=== PATIENT | female | born 1955 | race Caucasian/White ===

== ENCOUNTER 2021-10-02 10:36 | Inpatient (IN) ==
[2021-10-02] MEDS ORDERED: SODIUM CHLORIDE 0.9% 1,000 ML IV STA ×2 (11:49→14:56)
[2021-10-02 12:23] LABS: Basophils # 0.1 10*3/uL (0.0-0.2); Basophils % 0.3 % (0.0-0.8); Eosinophils % 0.1 % (0.00-10.9); Hematocrit 40.9 VOL% (35.7-47.0); Immature Granulocytes % 0.8 %; Immature Granulocytes Absolute 0.16 #; Lymphocytes # 2.7 10*3/uL (1.4-4.0); Lymphocytes % 12.9 % (21.3-54.2); Mean Corpuscular HGB Conc 31.8 GM/DL (32-36); Mean Corpuscular Volume 79.4 FL (87-102); Mean Platelet Volume 9.4 FL (9.6-12.0); Monocytes # 2.4 10*3/uL (0.11-0.8); Monocytes % 11.3 % (1.7-12.7); Neutrophils % 74.6 % (38.7-73.9); Platelet Count 404 T/CUMM (130-400); Red Blood Count 5.15 MC/CUMM (3.8-5.5); Red Cell Distribution Width 15.7 % (9.3-17.3); White Blood Count 20.8 T/CUMM (4-12)
[2021-10-02 12:36] LABS: Hypochromia Slight; Lymphocytes 17 % (20-55); Microcytosis Slight; Platelet Estimate Adequate; Total Cells Counted 100
[2021-10-02 12:38] LABS: Albumin 2.6 G/DL (3.4-5.0); Bilirubin,Total 0.9 MG/DL (0.20-1.00); Calcium 9.4 MG/DL (8.5-10.1); Osmolality,Calculated 267.4 MOS/KG (273-304); Potassium 3.4 MMOL/L (3.5-5.1); Total Protein 7.2 G/DL (6.4-8.2)
[2021-10-02 14:22] LABS: Mucus,Urine Occasional /LPF (Occasional); RBC,Urine <1 /HPF (0-4); Squamous Epithelial Cell,Urine Occasional /HPF (0-10); Urine Appearance Clear (Clear); Urine Color Yellow (Yellow)
[2021-10-02 14:23] LABS: Bilirubin,Urine Negative (Negative); Blood, Urine Small mg/dL (Negative); Glucose,Urine (UA) Negative (Negative); Ketones,Urine Negative (Negative); Nitrite,Urine Negative (Negative); Protein,Urine Negative (Negative); Urine Urobilinogen 0.2 eU/dL (<2.0)
[2021-10-02] MEDS ORDERED: LEVOFLOXACIN INJ 500 MG/100 ML PREMIX IV ONE (17:30)
[2021-10-02] MEDS ORDERED: PROMETHAZINE 25 MG/1 ML VIAL IM PRN (17:32)
[2021-10-02] MEDS ORDERED: CETIRIZINE 10 MG TABLET PO PRN (17:32)
[2021-10-02] MEDS ORDERED: ONDANSETRON 4 MG/2 ML VIAL IV PRN (17:32)
[2021-10-02] MEDS ORDERED: GLUCAGON 1 MG VIAL IM PRN (17:32)
[2021-10-02] MEDS ORDERED: FLUTICASONE 50 MCG NASAL SPRAY 16 GM BOTTLE BOTH NARES PRN (17:32)
[2021-10-02] MEDS ORDERED: HYDROmorphone 1 MG/1 ML SYRINGE IV PRN (17:32)
[2021-10-02] MEDS ORDERED: DEXTROSE 10% 250 ML BAG IV PRN (17:37)
[2021-10-02] MEDS: INSULIN REGULAR 100 UNIT/ML SUBCUT SCH ×2 (18:24→21:31)
[2021-10-02] MEDS: LACTATED RINGERS 1,000 ML IV SCH (19:34)
[2021-10-02] MEDS: metroNIDAZOLE INJ 500 MG/100 ML PREMIX IV SCH (19:34)
[2021-10-02] MEDS: SOTALOL 80 MG TABLET PO SCH (21:38)
[2021-10-02] MEDS: MAGNESIUM OXIDE 400 MG TABLET PO SCH (21:38)
[2021-10-02] MEDS: TAMSULOSIN 0.4 MG CAPSULE PO SCH (21:38)
[2021-10-02] MEDS: ACETAMINOPHEN 325 MG TABLET PO PRN (21:38)
[2021-10-02] MEDS: ROSUVASTATIN 10 MG TABLET PO SCH (21:38)
[2021-10-02] MEDS: cefTRIAXone 1,000 MG in SODIUM CHLORIDE 0.9% 100 ML IV SCH (21:39)
[2021-10-03] MEDS: metroNIDAZOLE INJ 500 MG/100 ML PREMIX IV SCH ×3 (02:14→16:43)
[2021-10-03] MEDS: LACTATED RINGERS 1,000 ML IV SCH ×3 (05:43→19:00)
[2021-10-03] MEDS: PANTOPRAZOLE 40 MG TABLET PO SCH (05:44)
[2021-10-03 06:26] LABS: Basophils # 0.1 10*3/uL (0.0-0.2); Basophils % 0.3 % (0.0-0.8); Eosinophils # 0.1 10*3/uL (0.0-0.87); Eosinophils % 0.5 % (0.00-10.9); Hematocrit 39.2 VOL% (35.7-47.0); Hemoglobin 12.2 GM/DL (12.0-16.0); Immature Granulocytes % 0.5 %; Immature Granulocytes Absolute 0.09 #; Lymphocytes # 1.9 10*3/uL (1.4-4.0); Lymphocytes % 10.6 % (21.3-54.2); Mean Corpuscular HGB Conc 31.1 GM/DL (32-36); Mean Corpuscular Volume 80.8 FL (87-102); Mean Platelet Volume 10.1 FL (9.6-12.0); Monocytes # 2.1 10*3/uL (0.11-0.8); Monocytes % 11.9 % (1.7-12.7); Neutrophils % 76.2 % (38.7-73.9); Platelet Count 345 T/CUMM (130-400); Red Blood Count 4.85 MC/CUMM (3.8-5.5); Red Cell Distribution Width 15.8 % (9.3-17.3); White Blood Count 17.4 T/CUMM (4-12)
[2021-10-03 06:43] LABS: Calcium 9.2 MG/DL (8.5-10.1); Osmolality,Calculated 273.8 MOS/KG (273-304); Potassium 3.1 MMOL/L (3.5-5.1)
[2021-10-03] MEDS ORDERED: POTASSIUM CHLORIDE RIDER 10 MEQ/100 ML PREMIX IV PRN (07:26)
[2021-10-03] MEDS: INSULIN REGULAR 100 UNIT/ML SUBCUT SCH ×4 (07:53→21:00)
[2021-10-03] MEDS ORDERED: fentaNYL 100 MCG/2 ML VIAL ONE (08:05)
[2021-10-03] MEDS ORDERED: SEVOFLURANE 1 UNIT/15 MINUTE INH ONE (08:31)
[2021-10-03] MEDS ORDERED: LIDOCAINE 2% 5 ML VIAL ONE (08:31)
[2021-10-03] MEDS ORDERED: ONDANSETRON 4 MG/2 ML VIAL ONE (08:31)
[2021-10-03] MEDS ORDERED: propofoL 200 MG/20 ML VIAL IV ONE (08:31)
[2021-10-03] MEDS ORDERED: ASPIRIN EC 81 MG TABLET PO SCH (09:00)
[2021-10-03] MEDS: ESCITALOPRAM 10 MG TABLET PO SCH (11:47)
[2021-10-03] MEDS: MAGNESIUM OXIDE 400 MG TABLET PO SCH ×2 (11:47→21:00)
[2021-10-03] MEDS: CHOLECALCIFEROL 5,000 UNIT TABLET PO SCH (11:47)
[2021-10-03] MEDS: TAMSULOSIN 0.4 MG CAPSULE PO SCH ×2 (11:47→21:00)
[2021-10-03] MEDS: SOTALOL 80 MG TABLET PO SCH ×2 (11:47→20:59)
[2021-10-03] MEDS: ENOXAPARIN 40 MG/0.4 ML SYRINGE SUBCUT SCH (11:48)
[2021-10-03] MEDS: cefTRIAXone 1,000 MG in SODIUM CHLORIDE 0.9% 100 ML IV SCH (20:58)
[2021-10-03] MEDS: ROSUVASTATIN 10 MG TABLET PO SCH (21:00)
[2021-10-03] MEDS: ACETAMINOPHEN 325 MG TABLET PO PRN (21:00)
[2021-10-04] MEDS: metroNIDAZOLE INJ 500 MG/100 ML PREMIX IV SCH ×3 (01:17→17:46)
[2021-10-04] MEDS: PANTOPRAZOLE 40 MG TABLET PO SCH (06:03)
[2021-10-04] MEDS: LACTATED RINGERS 1,000 ML IV SCH ×3 (06:03→17:47)
[2021-10-04 07:50] LABS: Basophils % 0.2 % (0.0-0.8); Eosinophils # 0.1 10*3/uL (0.0-0.87); Eosinophils % 0.7 % (0.00-10.9); Hematocrit 36.1 VOL% (35.7-47.0); Immature Granulocytes % 0.7 %; Immature Granulocytes Absolute 0.12 #; Lymphocytes # 2.4 10*3/uL (1.4-4.0); Mean Corpuscular HGB Conc 30.5 GM/DL (32-36); Mean Corpuscular Volume 81.5 FL (87-102); Monocytes # 1.9 10*3/uL (0.11-0.8); Monocytes % 10.7 % (1.7-12.7); Neutrophils % 74.7 % (38.7-73.9); Platelet Count 329 T/CUMM (130-400); Red Blood Count 4.43 MC/CUMM (3.8-5.5); Red Cell Distribution Width 16.1 % (9.3-17.3); White Blood Count 18.1 T/CUMM (4-12)
[2021-10-04] MEDS: INSULIN REGULAR 100 UNIT/ML SUBCUT SCH ×4 (07:55→20:51)
[2021-10-04 08:07] LABS: Calcium 8.8 MG/DL (8.5-10.1); Osmolality,Calculated 275.5 MOS/KG (273-304); Potassium 3.1 MMOL/L (3.5-5.1)
[2021-10-04] MEDS: ENOXAPARIN 40 MG/0.4 ML SYRINGE SUBCUT SCH (09:19)
[2021-10-04 10:11] LABS: INR 1.1; PT Patient Result 12.4 SECS (10.5-12.0)
[2021-10-04] MEDS ORDERED: DIAZEPAM 5 MG TABLET PO ONE (10:31)
[2021-10-04] MEDS ORDERED: fentaNYL 100 MCG/2 ML VIAL IV ONE (10:31)
[2021-10-04] MEDS ORDERED: MIDAZOLAM 2 MG/2 ML VIAL IV ONE (10:31)
[2021-10-04] MEDS: SOTALOL 80 MG TABLET PO SCH ×2 (16:00→20:49)
[2021-10-04] MEDS: ESCITALOPRAM 10 MG TABLET PO SCH (16:00)
[2021-10-04] MEDS: CHOLECALCIFEROL 5,000 UNIT TABLET PO SCH (16:00)
[2021-10-04] MEDS: MAGNESIUM OXIDE 400 MG TABLET PO SCH ×2 (16:00→20:49)
[2021-10-04] MEDS: TAMSULOSIN 0.4 MG CAPSULE PO SCH ×2 (16:00→20:49)
[2021-10-04] MEDS: ROSUVASTATIN 10 MG TABLET PO SCH (20:49)
[2021-10-04] MEDS: cefTRIAXone 1,000 MG in SODIUM CHLORIDE 0.9% 100 ML IV SCH (20:50)
[2021-10-04] MEDS: ACETAMINOPHEN 325 MG TABLET PO PRN (20:57)
[2021-10-05] MEDS: LACTATED RINGERS 1,000 ML IV SCH ×3 (01:30→18:01)
[2021-10-05] MEDS: metroNIDAZOLE INJ 500 MG/100 ML PREMIX IV SCH ×3 (01:30→18:00)
[2021-10-05 05:26] LABS: Basophils # 0.1 10*3/uL (0.0-0.2); Basophils % 0.3 % (0.0-0.8); Eosinophils # 0.3 10*3/uL (0.0-0.87); Eosinophils % 1.8 % (0.00-10.9); Hematocrit 35.9 VOL% (35.7-47.0); Immature Granulocytes % 0.6 %; Lymphocytes # 3.1 10*3/uL (1.4-4.0); Lymphocytes % 18.2 % (21.3-54.2); Mean Corpuscular HGB Conc 30.6 GM/DL (32-36); Mean Corpuscular Volume 83.1 FL (87-102); Mean Platelet Volume 9.7 FL (9.6-12.0); Monocytes # 1.8 10*3/uL (0.11-0.8); Monocytes % 10.4 % (1.7-12.7); Neutrophils % 68.7 % (38.7-73.9); Platelet Count 337 T/CUMM (130-400); Red Blood Count 4.32 MC/CUMM (3.8-5.5); Red Cell Distribution Width 16.6 % (9.3-17.3); White Blood Count 16.9 T/CUMM (4-12)
[2021-10-05] MEDS: PANTOPRAZOLE 40 MG TABLET PO SCH (05:30)
[2021-10-05 05:40] LABS: Osmolality,Calculated 278.4 MOS/KG (273-304); Potassium 3.3 MMOL/L (3.5-5.1)
[2021-10-05] MEDS: SOTALOL 80 MG TABLET PO SCH ×2 (08:53→21:52)
[2021-10-05] MEDS: TAMSULOSIN 0.4 MG CAPSULE PO SCH ×2 (08:54→21:52)
[2021-10-05] MEDS: CHOLECALCIFEROL 5,000 UNIT TABLET PO SCH (08:54)
[2021-10-05] MEDS: MAGNESIUM OXIDE 400 MG TABLET PO SCH ×2 (08:54→21:52)
[2021-10-05] MEDS: ESCITALOPRAM 10 MG TABLET PO SCH (08:54)
[2021-10-05] MEDS: INSULIN REGULAR 100 UNIT/ML SUBCUT SCH ×4 (08:55→21:52)
[2021-10-05] MEDS: ROSUVASTATIN 10 MG TABLET PO SCH (21:52)
[2021-10-05] MEDS: cefTRIAXone 1,000 MG in SODIUM CHLORIDE 0.9% 100 ML IV SCH (21:53)
[2021-10-05] MEDS: ACETAMINOPHEN 325 MG TABLET PO PRN (21:55)
[2021-10-06] MEDS: metroNIDAZOLE INJ 500 MG/100 ML PREMIX IV SCH ×2 (01:48→08:43)
[2021-10-06] MEDS: LACTATED RINGERS 1,000 ML IV SCH ×3 (02:42→11:48)
[2021-10-06 05:06] LABS: Basophils # 0.1 10*3/uL (0.0-0.2); Basophils % 0.3 % (0.0-0.8); Eosinophils # 0.4 10*3/uL (0.0-0.87); Eosinophils % 2.6 % (0.00-10.9); Hematocrit 36.4 VOL% (35.7-47.0); Hemoglobin 11.2 GM/DL (12.0-16.0); Immature Granulocytes % 0.7 %; Immature Granulocytes Absolute 0.12 #; Lymphocytes # 2.6 10*3/uL (1.4-4.0); Lymphocytes % 16.1 % (21.3-54.2); Mean Corpuscular HGB Conc 30.8 GM/DL (32-36); Mean Corpuscular Volume 82.4 FL (87-102); Mean Platelet Volume 9.9 FL (9.6-12.0); Monocytes # 1.6 10*3/uL (0.11-0.8); Monocytes % 9.6 % (1.7-12.7); Neutrophils % 70.7 % (38.7-73.9); Platelet Count 361 T/CUMM (130-400); Red Blood Count 4.42 MC/CUMM (3.8-5.5); Red Cell Distribution Width 16.7 % (9.3-17.3); White Blood Count 16.2 T/CUMM (4-12)
[2021-10-06 05:23] LABS: Calcium 8.7 MG/DL (8.5-10.1); Osmolality,Calculated 277.4 MOS/KG (273-304); Potassium 3.2 MMOL/L (3.5-5.1)
[2021-10-06] MEDS: PANTOPRAZOLE 40 MG TABLET PO SCH (05:24)
[2021-10-06] MEDS: INSULIN REGULAR 100 UNIT/ML SUBCUT SCH ×2 (08:13→11:40)
[2021-10-06] MEDS: ESCITALOPRAM 10 MG TABLET PO SCH (08:43)
[2021-10-06] MEDS: SOTALOL 80 MG TABLET PO SCH (08:43)
[2021-10-06] MEDS: CHOLECALCIFEROL 5,000 UNIT TABLET PO SCH (08:43)
[2021-10-06] MEDS: MAGNESIUM OXIDE 400 MG TABLET PO SCH (08:43)
[2021-10-06] MEDS: TAMSULOSIN 0.4 MG CAPSULE PO SCH (08:43)
[2021-10-06] MEDS ORDERED: POTASSIUM CHLORIDE 20 MEQ TABLET PO ONE (11:00)
[2021-10-06 11:39] VITALS: BP 146/82
[2021-10-06] MEDS: ACETAMINOPHEN 325 MG TABLET PO PRN (11:40)
[2021-10-06] MEDS ORDERED: CEFUROXIME 500 MG TABLET PO ONE (13:00)
[2021-10-06] MEDS ORDERED: FUROSEMIDE 40 MG/4 ML VIAL IV ONE (13:30)
[2021-10-06] MEDS ORDERED: DEXTROSE 10% 250 ML BAG IV PRN (15:40)
[2021-10-11] MEDS ORDERED: ACETAMINOPHEN 325 MG TABLET PO PRN (23:11)
[2021-10-11] MEDS ORDERED: GLUCAGON 1 MG VIAL IM PRN (23:12)
[2021-10-11] MEDS ORDERED: SODIUM CHLORIDE 0.9% 1,000 ML IV SCH (23:30)
[2021-10-11] MEDS ORDERED: CIPROFLOXACIN INJ 200 MG/100 ML PREMIX IV SCH (23:30)
[2021-10-11] MEDS ORDERED: LEVOFLOXACIN INJ 750 MG/150 ML PREMIX IV SCH (23:30)
[2021-10-11] MEDS ORDERED: metroNIDAZOLE INJ 500 MG/100 ML PREMIX IV SCH (23:30)
[2021-10-12] MEDS ORDERED: INSULIN LISPRO 100 UNIT/ML SUBCUT SCH
[2021-10-12] MEDS ORDERED: ALBUTEROL/IPRATROPIUM 3 ML NEB RESP TX SCH (01:00)
[2021-10-12 06:09] LABS: Arterial Base Excess iSTAT 9 MMOL/L (-2.5-2.5); Arterial Bicarbonate iSTAT 35.8 MMOL/L (20-26); Arterial O2 Saturation iSTAT 99 % (95-100); Arterial PCO2 iSTAT 59 MM HG (35-48); Arterial PO2 iSTAT 146 MM HG (80-95); Arterial Total CO2 iSTAT 38 MMO/L (23-27); Arterial pH iSTAT 7.393 (7.35-7.45)
[2021-10-12] MEDS ORDERED: PANTOPRAZOLE 40 MG VIAL IV SCH (09:00)
[2021-10-13] MEDS ORDERED: ALBUTEROL/IPRATROPIUM 3 ML NEB RESP TX PRN (00:01)
== END 2021-10-06 15:40 | disposition home health service (06) | DRG 987 ==
LOC: N.ED 10:36 → N.5E 15:09
PROVIDERS: ADMIT Surgery; ATTEND Surgery

== ENCOUNTER 2021-10-11 19:41 | Inpatient (IN) ==
[2021-10-11] MEDS ORDERED: ACETAMINOPHEN 500 MG TABLET PO STA ×2 (20:10→21:33)
[2021-10-11] MEDS ORDERED: SODIUM CHLORIDE 0.9% 1,000 ML IV STA (20:10)
[2021-10-11] MEDS ORDERED: ASPIRIN CHEW 81 MG TABLET PO STA (20:20)
[2021-10-11 20:23] LABS: Basophils # 0.1 10*3/uL (0.0-0.2); Basophils % 0.4 % (0.0-0.8); Eosinophils % 0.1 % (0.00-10.9); Hematocrit 39.7 VOL% (35.7-47.0); Hemoglobin 12.4 GM/DL (12.0-16.0); Immature Granulocytes Absolute 0.41 #; Lymphocytes # 1.3 10*3/uL (1.4-4.0); Lymphocytes % 6.5 % (21.3-54.2); Mean Corpuscular HGB Conc 31.2 GM/DL (32-36); Mean Corpuscular Volume 79.4 FL (87-102); Mean Platelet Volume 8.9 FL (9.6-12.0); Monocytes # 1.1 10*3/uL (0.11-0.8); Monocytes % 5.3 % (1.7-12.7); Neutrophils % 85.7 % (38.7-73.9); Platelet Count 466 T/CUMM (130-400); Red Cell Distribution Width 16.5 % (9.3-17.3); White Blood Count 20.2 T/CUMM (4-12)
[2021-10-11 20:46] LABS: Alanine Aminotransferase 22 U/L (13-56); Albumin 2.2 G/DL (3.4-5.0); Alkaline Phosphatase 188 U/L (45-117); Aspartate Amino Transferase 55 U/L (0-37); Bilirubin,Total < 0.39 MG/DL (0.20-1.00); Blood Urea Nitrogen 10 MG/DL (7-18); Calcium 8.4 MG/DL (8.5-10.1); Carbon Dioxide 30 MMOL/L (21-32); Chloride 96 MMOL/L (98-107); Glucose 152 MG/DL (74-106); Osmolality,Calculated 271.1 MOS/KG (273-304); Potassium 3.8 MMOL/L (3.5-5.1); Sodium 135 MMOL/L (136-145)
[2021-10-11] MEDS ORDERED: ACETAMINOPHEN INJ 1,000 MG/100 ML VIAL IV ONE (21:04)
[2021-10-11 21:15] LABS: Lymphocytes 6 % (20-55); Platelet Estimate Increased; Polychromasia Slight; Total Cells Counted 100
[2021-10-11] MEDS ORDERED: NITROGLYCERIN SL 0.4 MG TABLET SL STA (21:15)
[2021-10-11 21:16] LABS: Ovalocytes Slight
[2021-10-11 21:38] LABS: Bacteria,Urine Occasional /HPF (Few); Bilirubin,Urine Negative (Negative); Blood, Urine Moderate mg/dL (Negative); Glucose,Urine (UA) Negative (Negative); Ketones,Urine Negative (Negative); Nitrite,Urine Negative (Negative); Protein,Urine Negative (Negative); RBC,Urine 2 /HPF (0-4); Squamous Epithelial Cell,Urine Occasional /HPF (0-10); Urine Appearance Clear (Clear); Urine Color Yellow (Yellow); Urine Specific Gravity <= 1.005 (1.001-1.035); Urine Urobilinogen 0.2 eU/dL (<2.0)
[2021-10-11 21:54] LABS: Arterial Base Excess iSTAT 9 MMOL/L (-2.5-2.5); Arterial Bicarbonate iSTAT 34.9 MMOL/L (20-26); Arterial O2 Saturation iSTAT 99 % (95-100); Arterial PCO2 iSTAT 54 MM HG (35-48); Arterial PO2 iSTAT 142 MM HG (80-95); Arterial Total CO2 iSTAT 37 MMO/L (23-27); Arterial pH iSTAT 7.421 (7.35-7.45)
[2021-10-11] MEDS ORDERED: LEVOFLOXACIN INJ 750 MG/150 ML PREMIX IV STA (22:12)
[2021-10-11] MEDS ORDERED: VANCOMYCIN INJ 1,000 MG in SODIUM CHLORIDE 0.9% 250 ML IV STA (22:13)
[2021-10-11] MEDS ORDERED: ENOXAPARIN 30 MG/0.3 ML SYRINGE SUBCUT STA (22:28)
[2021-10-11] MEDS ORDERED: ENOXAPARIN 100 MG/ML SYRINGE SUBCUT STA (22:31)
[2021-10-12] MEDS ORDERED: DEXTROSE 10% 250 ML BAG IV PRN (00:03)
[2021-10-12] MEDS ORDERED: GLUCAGON 1 MG VIAL IM PRN ×2 (00:03→10:50)
[2021-10-12] MEDS: ALBUTEROL 2.5 MG/3 ML NEB RESP TX SCH ×4 (00:24→19:45)
[2021-10-12] MEDS ORDERED: SODIUM CHLORIDE 0.9% 1,000 ML IV SCH (00:30)
[2021-10-12] MEDS: metroNIDAZOLE INJ 500 MG/100 ML PREMIX IV SCH ×3 (03:14→19:18)
[2021-10-12] MEDS: SODIUM CHLORIDE 0.9% 500 ML IV SCH ×2 (03:17→08:39)
[2021-10-12] MEDS: CIPROFLOXACIN INJ 200 MG/100 ML PREMIX IV SCH ×2 (05:59→18:06)
[2021-10-12] MEDS: INSULIN LISPRO 100 UNIT/ML SUBCUT SCH ×3 (06:06→17:46)
[2021-10-12 08:08] LABS: Basophils % 0.2 % (0.0-0.8); Eosinophils # 0.1 10*3/uL (0.0-0.87); Eosinophils % 0.8 % (0.00-10.9); Hematocrit 38.1 VOL% (35.7-47.0); Hemoglobin 11.7 GM/DL (12.0-16.0); Immature Granulocytes % 1.9 %; Lymphocytes % 6.5 % (21.3-54.2); Mean Corpuscular HGB Conc 30.7 GM/DL (32-36); Mean Corpuscular Volume 80.5 FL (87-102); Mean Platelet Volume 8.9 FL (9.6-12.0); Monocytes % 6.4 % (1.7-12.7); Neutrophils % 84.2 % (38.7-73.9); Platelet Count 361 T/CUMM (130-400); Red Blood Count 4.73 MC/CUMM (3.8-5.5); Red Cell Distribution Width 16.9 % (9.3-17.3); White Blood Count 15.7 T/CUMM (4-12)
[2021-10-12] MEDS: PANTOPRAZOLE 40 MG VIAL IV SCH (08:33)
[2021-10-12 08:38] LABS: Alanine Aminotransferase 14 U/L (13-56); Albumin 1.9 G/DL (3.4-5.0); Alkaline Phosphatase 142 U/L (45-117); Aspartate Amino Transferase 41 U/L (0-37); Bilirubin,Total < 0.39 MG/DL (0.20-1.00); Blood Urea Nitrogen 10 MG/DL (7-18); Calcium 8.9 MG/DL (8.5-10.1); Carbon Dioxide 34 MMOL/L (21-32); Chloride 98 MMOL/L (98-107); Glucose 102 MG/DL (74-106); Osmolality,Calculated 268.1 MOS/KG (273-304); Potassium 3.7 MMOL/L (3.5-5.1); Sodium 135 MMOL/L (136-145); Total Protein 6.2 G/DL (6.4-8.2)
[2021-10-12] MEDS: ASPIRIN EC 81 MG TABLET PO SCH (08:49)
[2021-10-12] MEDS: lisinopriL 10 MG TABLET PO SCH (08:50)
[2021-10-12] MEDS: SOTALOL 80 MG TABLET PO SCH ×2 (08:50→20:14)
[2021-10-12 09:49] LABS: INR 1.1; PT Patient Result 12.4 SECS (10.5-12.0)
[2021-10-12] MEDS ORDERED: DEXTROSE 50% 25 GM/50 ML VIAL IV PRN (10:50)
[2021-10-12] MEDS: ACETAMINOPHEN 325 MG TABLET PO PRN (14:56)
[2021-10-13] MEDS: ALBUTEROL 2.5 MG/3 ML NEB RESP TX SCH ×4 (00:02→19:48)
[2021-10-13] MEDS: INSULIN LISPRO 100 UNIT/ML SUBCUT SCH ×4 (00:24→17:58)
[2021-10-13] MEDS: metroNIDAZOLE INJ 500 MG/100 ML PREMIX IV SCH ×3 (02:19→20:20)
[2021-10-13 04:16] LABS: Basophils % 0.3 % (0.0-0.8); Eosinophils # 0.1 10*3/uL (0.0-0.87); Eosinophils % 0.6 % (0.00-10.9); Hematocrit 35.5 VOL% (35.7-47.0); Immature Granulocytes % 1.9 %; Immature Granulocytes Absolute 0.26 #; Lymphocytes # 1.2 10*3/uL (1.4-4.0); Lymphocytes % 8.8 % (21.3-54.2); Mean Corpuscular Volume 80.3 FL (87-102); Monocytes # 0.9 10*3/uL (0.11-0.8); Monocytes % 6.6 % (1.7-12.7); Neutrophils % 81.8 % (38.7-73.9); Platelet Count 332 T/CUMM (130-400); Red Blood Count 4.42 MC/CUMM (3.8-5.5); White Blood Count 13.9 T/CUMM (4-12)
[2021-10-13 04:42] LABS: Alanine Aminotransferase 16 U/L (13-56); Albumin 1.9 G/DL (3.4-5.0); Alkaline Phosphatase 178 U/L (45-117); Aspartate Amino Transferase 52 U/L (0-37); Bilirubin,Total < 0.39 MG/DL (0.20-1.00); Blood Urea Nitrogen 10 MG/DL (7-18); Calcium 8.8 MG/DL (8.5-10.1); Carbon Dioxide 32 MMOL/L (21-32); Chloride 98 MMOL/L (98-107); Glucose 106 MG/DL (74-106); Potassium 3.5 MMOL/L (3.5-5.1); Sodium 136 MMOL/L (136-145); Total Protein 6.1 G/DL (6.4-8.2)
[2021-10-13] MEDS: CIPROFLOXACIN INJ 200 MG/100 ML PREMIX IV SCH ×2 (05:29→17:53)
[2021-10-13] MEDS: lisinopriL 10 MG TABLET PO SCH (09:03)
[2021-10-13] MEDS: ASPIRIN EC 81 MG TABLET PO SCH (09:03)
[2021-10-13] MEDS: SOTALOL 80 MG TABLET PO SCH ×2 (09:03→20:16)
[2021-10-13] MEDS: PANTOPRAZOLE 40 MG VIAL IV SCH (09:03)
[2021-10-13] MEDS: ASCORBIC ACID 500 MG TABLET PO SCH (20:16)
[2021-10-14] MEDS: ALBUTEROL 2.5 MG/3 ML NEB RESP TX SCH ×4 (00:03→19:45)
[2021-10-14] MEDS: INSULIN LISPRO 100 UNIT/ML SUBCUT SCH ×4 (00:36→18:28)
[2021-10-14] MEDS: metroNIDAZOLE INJ 500 MG/100 ML PREMIX IV SCH ×2 (04:08→10:31)
[2021-10-14 04:21] LABS: Basophils % 0.3 % (0.0-0.8); Eosinophils # 0.3 10*3/uL (0.0-0.87); Eosinophils % 2.3 % (0.00-10.9); Hematocrit 34.7 VOL% (35.7-47.0); Hemoglobin 10.7 GM/DL (12.0-16.0); Immature Granulocytes % 1.1 %; Immature Granulocytes Absolute 0.13 #; Lymphocytes # 1.9 10*3/uL (1.4-4.0); Lymphocytes % 15.8 % (21.3-54.2); Mean Corpuscular HGB Conc 30.8 GM/DL (32-36); Mean Corpuscular Volume 80.7 FL (87-102); Mean Platelet Volume 9.1 FL (9.6-12.0); Monocytes # 1.2 10*3/uL (0.11-0.8); Monocytes % 9.9 % (1.7-12.7); Neutrophils % 70.6 % (38.7-73.9); Platelet Count 289 T/CUMM (130-400); Red Cell Distribution Width 17.3 % (9.3-17.3); White Blood Count 12.2 T/CUMM (4-12)
[2021-10-14 05:00] LABS: Alanine Aminotransferase 27 U/L (13-56); Albumin 1.9 G/DL (3.4-5.0); Alkaline Phosphatase 211 U/L (45-117); Aspartate Amino Transferase 84 U/L (0-37); Bilirubin,Total < 0.39 MG/DL (0.20-1.00); Blood Urea Nitrogen 12 MG/DL (7-18); Calcium 8.8 MG/DL (8.5-10.1); Carbon Dioxide 33 MMOL/L (21-32); Chloride 99 MMOL/L (98-107); Glucose 109 MG/DL (74-106); Potassium 3.3 MMOL/L (3.5-5.1); Sodium 136 MMOL/L (136-145); Total Protein 5.9 G/DL (6.4-8.2)
[2021-10-14] MEDS: CIPROFLOXACIN INJ 200 MG/100 ML PREMIX IV SCH (05:53)
[2021-10-14] MEDS ORDERED: POTASSIUM CHLORIDE 20 MEQ TABLET PO PRN (07:25)
[2021-10-14] MEDS: ASCORBIC ACID 500 MG TABLET PO SCH ×2 (10:29→20:52)
[2021-10-14] MEDS: ASPIRIN EC 81 MG TABLET PO SCH (10:29)
[2021-10-14] MEDS: SOTALOL 80 MG TABLET PO SCH ×2 (10:29→20:52)
[2021-10-14] MEDS: lisinopriL 10 MG TABLET PO SCH (10:30)
[2021-10-14] MEDS: PANTOPRAZOLE 40 MG VIAL IV SCH (10:30)
[2021-10-14] MEDS ORDERED: TUBERCULIN SKIN TEST 0.1 ML SYRINGE INTRADERM ONE (13:11)
[2021-10-14] MEDS: metroNIDAZOLE 500 MG TABLET PO SCH ×2 (18:01→20:52)
[2021-10-14] MEDS: CIPROFLOXACIN 500 MG TABLET PO SCH (20:52)
[2021-10-14] MEDS: ACETAMINOPHEN 325 MG TABLET PO PRN (20:59)
[2021-10-15] MEDS: INSULIN LISPRO 100 UNIT/ML SUBCUT SCH ×3 (00:45→13:28)
[2021-10-15] MEDS: ALBUTEROL 2.5 MG/3 ML NEB RESP TX SCH ×3 (02:00→07:20)
[2021-10-15 05:42] LABS: Basophils % 0.4 % (0.0-0.8); Eosinophils # 0.3 10*3/uL (0.0-0.87); Eosinophils % 3.4 % (0.00-10.9); Hematocrit 36.3 VOL% (35.7-47.0); Hemoglobin 11.2 GM/DL (12.0-16.0); Immature Granulocytes % 1.1 %; Immature Granulocytes Absolute 0.11 #; Lymphocytes # 2.3 10*3/uL (1.4-4.0); Lymphocytes % 23.3 % (21.3-54.2); Mean Corpuscular HGB Conc 30.9 GM/DL (32-36); Mean Corpuscular Volume 81.4 FL (87-102); Mean Platelet Volume 9.5 FL (9.6-12.0); Monocytes # 1.1 10*3/uL (0.11-0.8); Monocytes % 11.7 % (1.7-12.7); Neutrophils % 60.1 % (38.7-73.9); Platelet Count 312 T/CUMM (130-400); Red Blood Count 4.46 MC/CUMM (3.8-5.5); Red Cell Distribution Width 17.1 % (9.3-17.3); White Blood Count 9.8 T/CUMM (4-12)
[2021-10-15 06:01] LABS: Alanine Aminotransferase 36 U/L (13-56); Albumin 1.8 G/DL (3.4-5.0); Alkaline Phosphatase 282 U/L (45-117); Aspartate Amino Transferase 98 U/L (0-37); Bilirubin,Total < 0.39 MG/DL (0.20-1.00); Blood Urea Nitrogen 10 MG/DL (7-18); Calcium 8.8 MG/DL (8.5-10.1); Carbon Dioxide 33 MMOL/L (21-32); Chloride 102 MMOL/L (98-107); Glucose 110 MG/DL (74-106); Osmolality,Calculated 280.3 MOS/KG (273-304); Potassium 3.5 MMOL/L (3.5-5.1); Sodium 141 MMOL/L (136-145); Total Protein 6.2 G/DL (6.4-8.2)
[2021-10-15 06:58] LABS: Platelet Estimate Adequate
[2021-10-15] MEDS: SOTALOL 80 MG TABLET PO SCH (09:37)
[2021-10-15] MEDS: CIPROFLOXACIN 500 MG TABLET PO SCH (09:38)
[2021-10-15] MEDS: lisinopriL 10 MG TABLET PO SCH (09:38)
[2021-10-15] MEDS: ASPIRIN EC 81 MG TABLET PO SCH (09:38)
[2021-10-15] MEDS: metroNIDAZOLE 500 MG TABLET PO SCH (09:38)
[2021-10-15] MEDS: ASCORBIC ACID 500 MG TABLET PO SCH (09:38)
[2021-10-15] MEDS: PANTOPRAZOLE 40 MG VIAL IV SCH (09:40)
[2021-10-15 12:23] VITALS: BP 137/77
== END 2021-10-15 13:21 | disposition swing bed (61) | DRG 758 ==
LOC: N.ED 19:41 → N.EDINP 10-12 00:03 → SUATTDRO 10-12 00:03 → N.TELES 10-12 01:44
PROVIDERS: ADMIT Hospitalist; ATTEND Family Medicine